=== PATIENT | male | born 1960 | race African-American/Black ===

== ENCOUNTER 2018-03-18 23:54 | Emergency (ER) | payer OTHER ==
--- NOTE | 2018-03-18 23:59 | PDOC ---
History of Present Illness - General Stated Complaint: INTOX Time Seen by Provider: 03/18/18 23:57 History Source: Patient Exam Limitations: No Limitations, Clinical Condition - History of Present Illness Initial Comments: 57 yo M w a pmh of treated gonorrhea and ADHD presents to the [facility] Er from [facility] for being intoxicated. The patient admits to drinking 1.5 pints of Vodka at 5 pm tonight. He states he wants to goto [facility] and has not done any other drugs. He had a blood alcohol level of .4 at [facility]. Here in the ED he is still mildly intoxicated but states he hasn't drank in the past 7 hours. He had a CIWA score of 22 at [facility]. He denies any fevers, chills, infections, headache, neck pain, blurry vision, chest pain, SOB, difficulty breathing, abdominal pain, dysuria, frequency, urgency, or other complaints. PSH: Wired jaw Social Hx: Drank 1.5 pints of vodka earlier today, smoks 1 PPD. Denies other substance usage Allergies: NKA, NKDA PCP: None Past History - Past Medical History Allergies/Adverse Reactions: Allergies Allergy/AdvReac Type Severity Reaction Status Date / Time No Known Allergies Allergy Verified 03/19/18 00:02 Home Medications: Ambulatory Orders Mirtazapine [Remeron -] 45 mg PO HS #90 tablet 08/14/14 Clindamycin [Cleocin -] 300 mg PO Q6HPO 03/09/15 Mirtazapine [Remeron -] 45 mg PO HS #30 tablet 03/10/15 Quetiapine Fumarate [Seroquel -] 300 mg PO HS #30 tablet 03/10/15 Anemia: No Asthma: No Cancer: No Cardiac Disorders: No CVA: No COPD: No CHF: No Dementia: No Diabetes: No GI Disorders: No Disorders: No HTN: No Hypercholesterolemia: No Kidney Stones: No Liver Disease: No Seizures: No Thyroid Disease: No - Surgical History Abdominal Surgery: No Appendectomy: No Cardiac Surgery: No Cholecystectomy: No Lung Surgery: No Neurologic Surgery: No Orthopedic Surgery: No - Reproductive History Testicular Surgery: No - Suicide/Smoking/Psychosocial Hx Smoking History: Current every day smoker Have you smoked in the past 12 months: Yes Number of Cigarettes Smoked Daily: 10 Cigars Per Day: 0 'Breaking Loose' booklet given: 03/09/15 Hx Alcohol Use: Yes Drug/Substance Use Hx: Yes Substance Use Type: Alcohol, Cocaine Hx Substance Use Treatment: Yes ([facility]) Review of Systems - Review of Systems Able to Perform ROS?: No (intoxicated) *Physical Exam - Physical Exam General Appearance: Yes: Nourished, Alcohol on Breath. No: Apparent Distress HEENT: positive: EOMI, CHERRY, Normal ENT Inspection Neck: positive: Supple. negative: Rigid Respiratory/Chest: positive: Lungs Clear Cardiovascular: positive: Regular Rhythm, Regular Rate Vascular Pulses: Dorsalis-Pedis (R): 2+, Doralis-Pedis (L): 2+ Gastrointestinal/Abdominal: positive: Normal Bowel Sounds, Soft Rectal Exam: positive: deferred Lymphatic: negative: Adenopathy Musculoskeletal: positive: Normal Inspection. negative: CVA Tenderness Extremity: positive: Normal Capillary Refill, Normal Inspection, Normal Range of Motion Integumentary: positive: Normal Color, Dry, Warm Neurologic: positive: clock and watch assembler II-XII NML intact, Alert, Normal Response. negative: Normal Mood/Affect (intoxicated) Medical Decision Making - Medical Decision Making 57 yo M w a pmh of treated gonorrhea and ADHD presents to the [facility] Er from [facility] for being intoxicated. The patient admits to drinking 1.5 pints of Vodka at 5 pm tonight. He states he wants to goto [facility] and has not done any other drugs. He had a blood alcohol level of .4 at [facility]. Here in the ED he is still mildly intoxicated but states he hasn't drank in the past 7 hours. He had a CIWA score of 22 at [facility]. DDx IBNLT: alcohol intox vs other intoxication, alcohol withdrawal Plan monitor patient for clinical sobriety, re-assess. Alcohol level: 251 Patient is clinically sober here in the ER. Will DC to [facility]. *DC/Admit/Observation/Transfer Diagnosis at time of Disposition: Alcohol abuse - Discharge Dispostion Disposition: HOME Condition at time of disposition: Improved Decision to Admit order: No - Referrals Referrals: [facility] [place] [Provider Group] - Patient Instructions Printed Discharge Instructions: DI for Alcohol Abuse Additional Instructions: You came into the ER after drinking alcohol. We monitored you until you were clinically sober. Please make sure to go back to [facility] for detox. MAKE SURE NOT TO DRINK ANYMORE. Come back to the ER if you experience any further concerns. Thank you for coming to the [facility] ER. We hope you feel better soon! Print Language: BAHAMIAN - Post Discharge Activity
--- NOTE | 2018-03-18 23:59 | PDOC ---
Attending Attestation - Resident Resident Name: Willie Minaya - ED Attending Attestation I have performed the following: I have examined & evaluated the patient, The case was reviewed & discussed with the resident, I agree w/resident's findings & plan, Exceptions are as noted - HPI HPI: 03/19/18 00:42 Mr Warner is a 57 yo M sent to the ER due to Intoxication He has a h/o ADHD and alcohol abuse. Pt admits to drinking 1.5 pints of Vodka at 5 pm tonight. Although pt is speaking in clear sentences, ambulatory with a steady gait, he had a blood alcohol level of .4 at [facility] and therefore was sent to the ER. Here in the ED he is still mildly intoxicated but states he hasn't drank in the past 7 hours. The patient currently has no complaints - Physicial Exam PE: 03/19/18 00:56 GENERAL: The patient is in no acute distress. HEAD: Normal EYES: PERRLA, EOMI, sclera anicteric, conjunctiva clear. ENT: Ears normal, nares patent, oropharynx clear without exudates. Moist mucous membranes. NECK: Normal range of motion, supple LUNGS: Breath sounds equal, clear to auscultation bilaterally. No wheezes, and no crackles. HEART:Regular rate and rhythm, normal S1 and S2 without murmur, rub or gallop. ABDOMEN: Soft, nontender, normoactive bowel sounds. No guarding, no rebound. No masses palpable. EXTREMITIES: Normal range of motion, no edema. NEUROLOGICAL: Cranial nerves II through XII grossly intact. Normal speech. No focal neurological deficits. MUSCULOSKELETAL: Back non-tender to palpation SKIN: Warm, Dry, normal turgor, no rashes or lesions noted. - Medical Decision Making 03/19/18 00:58 57 yo M who is intoxicated, requesting detox In the ER pending sobriety Pt signed out to Dr Paz Call placed to detox They are requesting an alcohol level of 200 prior to accepting this patient
[2018-03-19 00:04] VITALS: BP 132/79; PULSE 89; TEMP 98.6; BMI 25.7
== END 2018-03-19 04:55 | disposition home or self-care (01) ==
LOC: JER 23:54
DX: F10.120 Alcohol abuse with intoxication, uncomplicated (principal); Y90.8 Blood alcohol level of 240 mg/100 ml or more; F90.9 Attention-deficit hyperactivity disorder, unspecified type; Z59.0 Homelessness
CPT/HCPCS: 36415; 80307; 99281-25

== ENCOUNTER 2020-08-13 09:40 | Inpatient (IN) | payer OTHER ==
[2020-08-13 10:20] VITALS: BMI 18.6
[2020-08-13] MEDS ORDERED: MAGNESIUM HYDROX 2400MG/30ML ORAL SUSPENSION 30 ML CUP PO PRN (11:27)
[2020-08-13] MEDS ORDERED: IBUPROFEN 400 MG TABLET (FP) PO PRN (11:27)
[2020-08-13] MEDS ORDERED: MAGNESIUM CITRATE 300 ML BOTTLE PO PRN (11:27)
[2020-08-13] MEDS ORDERED: diazePAM 5 MG TABLET PO PRN (11:27)
[2020-08-13] MEDS ORDERED: ONDANSETRON *ODT* 4 MG TABLET SL PRN (11:27)
[2020-08-13] MEDS ORDERED: NICOTINE POLACRILEX 2 MG GUM BUC PRN (11:27)
[2020-08-13] MEDS ORDERED: MENTHOL/PHENOL 1 EACH UD MM PRN (11:27)
[2020-08-13] MEDS ORDERED: MAG HYDROX/AL HYDROX/SIMETH 30 ML UNIT-DOSE CUP PO PRN (11:27)
[2020-08-13] MEDS ORDERED: BISMUTH SUBSALICYLATE 262 MG/15 ML BTL PO PRN (11:27)
[2020-08-13] MEDS ORDERED: ACETAMINOPHEN 325 MG TABLET (FP) PO PRN ×2 (11:27)
[2020-08-13] MEDS: diazePAM 5 MG TABLET PO SCH ×3 (12:52→22:26)
[2020-08-13] MEDS: PRENATAL VITAMINS W/ FOLIC ACID TABLET (FP) PO SCH (12:54)
[2020-08-13 13:22] LABS: HEMATOCRIT 33.2 % (35.4-49); MCH 36.4 pg (25.7-33.7); MEAN CELL VOLUME 110.2 fl (80-96); MEAN PLT VOLUME 6.9 fl (7.5-11.1); PLATELET COUNT 256 10^3/uL (134-434); RBC 3.02 M/mm3 (4.00-5.60); RDW 19.4 % (11.9-15.9)
[2020-08-13 13:41] LABS: CREATININE 0.8 mg/dL (0.55-1.3)
[2020-08-13 13:42] LABS: ALBUMIN 3.6 g/dl (3.4-5.0); BILIRUBIN,TOTAL 0.3 mg/dL (0.2-1); BLOOD UREA NITROGEN 10.8 mg/dL (7-18)
[2020-08-13 13:43] LABS: TOT PROT 7.8 g/dl (6.4-8.2)
[2020-08-13] MEDS: hydrOXYzine PAMOATE 25 MG CAPSULE (FP) PO SCH ×3 (14:04→22:26)
[2020-08-13] MEDS ORDERED: QUEtiapine FUMARATE 100 MG TABLET (FP) PO SCH (22:00)
[2020-08-13] MEDS ORDERED: MIRTAZAPINE 15 MG TABLET (FP) PO SCH (22:00)
[2020-08-13] MEDS ORDERED: MELATONIN 5 MG TABLETS PO SCH (22:00)
[2020-08-13] MEDS ORDERED: THIAMINE HCL 100 MG TABLET (FP) PO SCH (22:00)
[2020-08-13] MEDS: METHOCARBAMOL 500 MG TABLET PO PRN (22:28)
[2020-08-14] MEDS: diazePAM 5 MG TABLET PO SCH ×2 (07:12→10:27)
[2020-08-14] MEDS: hydrOXYzine PAMOATE 25 MG CAPSULE (FP) PO SCH ×3 (07:12→14:09)
[2020-08-14] MEDS ORDERED: NICOTINE 7 MG/24 HOURS TOPICAL PATCH TD SCH (10:00)
[2020-08-14] MEDS: PRENATAL VITAMINS W/ FOLIC ACID TABLET (FP) PO SCH (10:26)
[2020-08-14] MEDS: METHOCARBAMOL 500 MG TABLET PO PRN (10:27)
[2020-08-14 13:55] VITALS: BP 122/76; PULSE 74; TEMP 96.9
[2020-08-15] MEDS ORDERED: diazePAM 5 MG TABLET PO SCH (06:00)
[2020-08-16] MEDS ORDERED: diazePAM 5 MG TABLET PO SCH (06:00)
[2020-08-17] MEDS ORDERED: diazePAM 5 MG TABLET PO ONE (06:00)
== END 2020-08-14 15:36 | disposition left against medical advice (07) | DRG 894 ==
LOC: YASAS 09:40 → Y6N 11:30 → Y3N 11:47
PROVIDERS: ADMIT Allergy & Immunology; ATTEND Allergy & Immunology
PROC: HZ2ZZZZ Detoxification Services for Substance Abuse Treatment (ICD-10-PCS; principal; 2020-08-13)
DX: F10.230 Alcohol dependence with withdrawal, uncomplicated (principal); F14.20 Cocaine dependence, uncomplicated; F31.81 Bipolar II disorder; F17.210 Nicotine dependence, cigarettes, uncomplicated; F19.24 Other psychoactive substance dependence with psychoactive substance-induced mood disorder; F90.9 Attention-deficit hyperactivity disorder, unspecified type; K21.9 Gastro-esophageal reflux disease without esophagitis; M54.5 Low back pain; G89.29 Other chronic pain; M54.2 Cervicalgia; Z91.81 History of falling; Z91.14 Patient's other noncompliance with medication regimen; Z56.0 Unemployment, unspecified; Z59.0 Homelessness
CPT/HCPCS: 36415; 80053; 85027; 86780; C9803; U0003; U0005

== ENCOUNTER 2020-11-15 08:43 | Inpatient (IN) | payer OTHER ==
[2020-11-15 09:36] VITALS: BMI 18.1
[2020-11-15] MEDS ORDERED: MAGNESIUM CITRATE 300 ML BOTTLE PO PRN (11:18)
[2020-11-15] MEDS ORDERED: ACETAMINOPHEN 325 MG TABLET (FP) PO PRN (11:18)
[2020-11-15] MEDS ORDERED: BISMUTH SUBSALICYLATE 524 MG/30 ML PO PRN (11:18)
[2020-11-15] MEDS ORDERED: MENTHOL/PHENOL 1 EACH UD MM PRN (11:18)
[2020-11-15] MEDS ORDERED: LORazepam 1 MG TABLET PO PRN (11:18)
[2020-11-15] MEDS ORDERED: IBUPROFEN 400 MG TABLET (FP) PO PRN (11:18)
[2020-11-15] MEDS ORDERED: MAG HYDROX/AL HYDROX/SIMETH 30 ML UNIT-DOSE CUP PO PRN (11:18)
[2020-11-15] MEDS ORDERED: METHOCARBAMOL 500 MG TABLET PO PRN (11:18)
[2020-11-15] MEDS ORDERED: MAGNESIUM HYDROX 2400MG/30ML ORAL SUSPENSION 30 ML CUP PO PRN (11:18)
[2020-11-15] MEDS ORDERED: ONDANSETRON *ODT* 4 MG TABLET SL PRN (11:18)
[2020-11-15] MEDS ORDERED: hydrOXYzine PAMOATE 25 MG CAPSULE (FP) PO ONE (12:54)
[2020-11-15] MEDS ORDERED: LORazepam 1 MG TABLET ONE (12:55)
[2020-11-15] MEDS: hydrOXYzine PAMOATE 25 MG CAPSULE (FP) PO SCH ×3 (13:04→22:42)
[2020-11-15] MEDS: LORazepam 2 MG TABLET PO SCH ×2 (17:33→22:42)
[2020-11-15] MEDS ORDERED: MIRTAZAPINE 15 MG TABLET (FP) PO SCH (22:00)
[2020-11-15] MEDS: QUEtiapine FUMARATE 50 MG TABLET PO SCH (22:42)
[2020-11-15] MEDS: THIAMINE HCL 100 MG TABLET (FP) PO SCH (22:42)
[2020-11-15] MEDS: MIRTAZAPINE 15 MG TABLET (FP) PO SCH (22:42)
[2020-11-15] MEDS: MELATONIN 5 MG TABLETS PO SCH (22:43)
[2020-11-16] MEDS: hydrOXYzine PAMOATE 25 MG CAPSULE (FP) PO SCH ×5 (06:10→22:25)
[2020-11-16] MEDS: LORazepam 2 MG TABLET PO SCH ×4 (06:11→22:24)
[2020-11-16] MEDS: PRENATAL VITAMINS W/ FOLIC ACID TABLET (FP) PO SCH (11:03)
[2020-11-16] MEDS: ACETAMINOPHEN 325 MG TABLET (FP) PO PRN (17:41)
[2020-11-16] MEDS: NICOTINE 10 MG CARTRIDGE (INHALER) IH PRN (19:44)
[2020-11-16] MEDS: QUEtiapine FUMARATE 50 MG TABLET PO SCH (22:24)
[2020-11-16] MEDS: THIAMINE HCL 100 MG TABLET (FP) PO SCH (22:24)
[2020-11-16] MEDS: MIRTAZAPINE 15 MG TABLET (FP) PO SCH (22:25)
[2020-11-16] MEDS: MELATONIN 5 MG TABLETS PO SCH (22:25)
[2020-11-17] MEDS: NICOTINE 10 MG CARTRIDGE (INHALER) IH PRN (01:13)
[2020-11-17] MEDS: hydrOXYzine PAMOATE 25 MG CAPSULE (FP) PO SCH ×5 (05:36→22:20)
[2020-11-17] MEDS: LORazepam 1 MG TABLET PO SCH ×4 (05:36→22:19)
[2020-11-17] MEDS: PRENATAL VITAMINS W/ FOLIC ACID TABLET (FP) PO SCH (10:12)
[2020-11-17] MEDS: ACETAMINOPHEN 325 MG TABLET (FP) PO PRN ×2 (10:13→17:43)
[2020-11-17] MEDS: MIRTAZAPINE 15 MG TABLET (FP) PO SCH (22:20)
[2020-11-17] MEDS: QUEtiapine FUMARATE 50 MG TABLET PO SCH (22:20)
[2020-11-17] MEDS: MELATONIN 5 MG TABLETS PO SCH (22:20)
[2020-11-17] MEDS: THIAMINE HCL 100 MG TABLET (FP) PO SCH (22:20)
[2020-11-18] MEDS ORDERED: LORazepam 0.5 MG TABLET PO PRN
[2020-11-18] MEDS: hydrOXYzine PAMOATE 25 MG CAPSULE (FP) PO SCH ×2 (05:56→10:18)
[2020-11-18] MEDS: LORazepam 0.5 MG TABLET PO SCH ×2 (05:56→10:17)
[2020-11-18 09:16] VITALS: BP 129/77; PULSE 85; TEMP 96.8
[2020-11-18 10:16] LABS: CALCIUM 9.3 mg/dL (8.5-10.1)
[2020-11-18 10:17] LABS: ALBUMIN 2.9 g/dl (3.4-5.0)
[2020-11-18] MEDS: ACETAMINOPHEN 325 MG TABLET (FP) PO PRN (10:18)
[2020-11-18] MEDS: PRENATAL VITAMINS W/ FOLIC ACID TABLET (FP) PO SCH (10:18)
[2020-11-18 10:20] LABS: CREATININE 0.6 mg/dL (0.55-1.3)
[2020-11-18 10:21] LABS: BILIRUBIN,TOTAL 0.5 mg/dL (0.2-1); TOT PROT 6.6 g/dl (6.4-8.2)
[2020-11-18 10:22] LABS: HEMATOCRIT 32.2 % (35.4-49); HEMOGLOBIN 11.1 GM/dL (11.7-16.9); MCHC 34.5 g/dl (32.0-35.9); MEAN CELL VOLUME 104.3 fl (80-96); MEAN PLT VOLUME 8.9 fl (7.5-11.1); PLATELET COUNT 112 10^3/uL (134-434); RBC 3.09 M/mm3 (4.00-5.60); RDW 15.7 % (11.9-15.9); WHITE BLOOD COUNT 5.6 K/mm3 (4.0-10.0)
[2020-11-18 10:29] LABS: BLOOD UREA NITROGEN 15.5 mg/dL (7-18)
[2020-11-19] MEDS ORDERED: LORazepam 0.5 MG TABLET PO ONE (05:00)
== END 2020-11-18 11:19 | disposition home or self-care (01) | DRG 897 ==
LOC: YASAS 08:43 → Y3N 16:28
PROVIDERS: ADMIT Allergy & Immunology; ATTEND Allergy & Immunology
PROC: HZ2ZZZZ Detoxification Services for Substance Abuse Treatment (ICD-10-PCS; principal; 2020-11-15)
DX: F10.230 Alcohol dependence with withdrawal, uncomplicated (principal); F14.20 Cocaine dependence, uncomplicated; F19.282 Other psychoactive substance dependence with psychoactive substance-induced sleep disorder; F12.20 Cannabis dependence, uncomplicated; F17.210 Nicotine dependence, cigarettes, uncomplicated; F31.9 Bipolar disorder, unspecified; F19.24 Other psychoactive substance dependence with psychoactive substance-induced mood disorder; G62.9 Polyneuropathy, unspecified; M54.50 Low back pain, unspecified; G89.29 Other chronic pain; Z86.19 Personal history of other infectious and parasitic diseases; Z56.0 Unemployment, unspecified; Z59.01 Sheltered homelessness
CPT/HCPCS: 36415; 80053; 85027; 86780; C9803; U0003; U0005